=== PATIENT | female | born 1935 | race Caucasian/White ===

== ENCOUNTER 2016-09-26 22:51 | Inpatient (IN) | payer MEDICARE, OTHER ==
[~2016-09-26] VITALS: Ht 160 cm; Wt 87.6 kg
[2016-09-26] MEDS ORDERED: DuoNeb 0.5-3(2.5)mg/3ml neb HHN PRN (23:00)
[2016-09-26] MEDS ORDERED: Miralax 17gm pkt ORAL PRN (23:00)
[2016-09-26] MEDS ORDERED: Mylanta II UD 30ml ORAL PRN (23:00)
[2016-09-26] MEDS ORDERED: Zolpidem 5mg tab ORAL PRN (23:00)
[2016-09-26] MEDS ORDERED: Promethazine/Codeine 5ml UD ORAL PRN (23:00)
[2016-09-26] MEDS ORDERED: Morphine Sulfate 2mg/ml Inj IVP PRN (23:00)
[2016-09-26] MEDS ORDERED: LIPITOR20 MG ORAL (23:57)
[2016-09-26] MEDS ORDERED: LYRICA100 MG ORAL (23:57)
[2016-09-26] MEDS ORDERED: DILANTIN100 MG ORAL (23:57)
[2016-09-26] MEDS ORDERED: SENSIPAR30 MG ORAL (23:57)
[2016-09-26] MEDS ORDERED: COREG6.25 MG ORAL (23:57)
[2016-09-26] MEDS ORDERED: AGGRENOX1 CAP ORAL (23:57)
[2016-09-26] MEDS ORDERED: RENVELA800 MG ORAL (23:57)
[2016-09-26] MEDS ORDERED: VITAMIN D1000 UNI1 ORAL (23:57)
[2016-09-27] VITALS: BP 142/76
[2016-09-27 07:39] VITALS: BP 155/78
[2016-09-27 08:07] LABS: BASOPHILS % (AUTO) 1.1 % (0.0-2.0); EOSINOPHILS % (AUTO) 0.1 % (0.0-3.0); LYMPHOCYTES % (AUTO) 8.8 % (20.0-45.0); MEAN CORPUSCULAR HEMOGLOBIN 30.2 PG (27.0-31.0); MEAN CORPUSCULAR HGB CONC 31.4 G/DL (32.0-36.0); MEAN CORPUSCULAR VOLUME 96 FL (80-99); MONOCYTES % (AUTO) 7.8 % (1.0-10.0); NEUTROPHILS % (AUTO) 82.3 % (45.0-75.0); PLATELET COUNT 124 K/UL (150-450); RED BLOOD COUNT 3.76 M/UL (4.20-5.40); RED CELL DISTRIBUTION WIDTH 15.3 % (11.6-14.8); WHITE BLOOD COUNT 6.6 K/UL (4.8-10.8)
[2016-09-27 08:15] LABS: ALANINE AMINOTRANSFERASE 11 U/L (3-33); ALBUMIN/GLOBULIN RATIO 1.4 (1.0-2.7); ANION GAP 19 (5-15); ASPARTATE AMINO TRANSFERASE 22 U/L (5-40); CALCIUM 8.8 mg/dL (8.6-10.2); CARBON DIOXIDE 30 mEQ/L (20-30); CHLORIDE 91 mEQ/L (98-107); CREATININE 5.9 mg/dL (0.5-0.9); HEMOLYSIS 3; POTASSIUM 4.8 mEQ/L (3.4-4.9); SODIUM 140 mEQ/L (135-145); TOTAL PROTEIN 6.9 g/dL (6.6-8.7)
[2016-09-27 08:32] LABS: HEMOGLOBIN A1C 7.7 % (< 6.0)
[2016-09-27] MEDS: Heparin 5000 units/ml inj SUBQ SCH ×2 (09:00→21:00)
[2016-09-27 12:22] VITALS: BP 197/101
--- NOTE | 2016-09-27 12:28 | History and Physical ---
History of Present Illness General Date patient seen: Sep 27, 2016 Reason for Hospitalization: cough and fever Present Illness HPI 81 year old female with PMHx of ESRD on HD (M/W/F), DM, htn, living at home, walking with a walker, was taken by paramedics to [facility] with CC of fever and cough. She was diagnosed to have bronchitis and transferred to [place] for further management. Pt is awake, comfortable, hardly talking, no in acute distress. Pts help with PMHx. Allergies: Coded Allergies: No Known Allergies (Verified Allergy, Unknown, 10/28/09) Medication History Scheduled Atorvastatin Calcium* (Lipitor*), 20 MG ORAL BEDTIME, (Reported) Carvedilol (Coreg), 6.25 MG ORAL BID, (Reported) Cholecalciferol (Vitamin D3)* (Vitamin D*), 2,000 UNITS ORAL DAILY, (Reported) Cinacalcet* (Sensipar*), 30 MG ORAL DAILY, (Reported) Dipyridamole/Aspirin (Aggrenox 25 mg-200 mg Capsule), 1 CAP ORAL DAILY, ( Reported) Phenytoin Sodium Extended* (Dilantin*), 100 MG ORAL DAILY, (Reported) Pregabalin (Lyrica), 100 MG ORAL DAILY, (Reported) Sevelamer Carbonate (Renvela), 800 MG ORAL BID, (Reported) Patient History Healthcare decision maker Resuscitation status Full Code Advanced Directive on File Past Medical/Surgical History Past Medical/Surgical History: (1) Diabetes mellitus (2) ESRF (end stage renal failure) (3) HTN (hypertension) Review of Systems Respiratory: Reports: cough, shortness of breath, sputum Physical Exam General Appearance: WD/WN Lines, tubes and drains: peripheral HEENT: normocephalic, atraumatic Neck: non-tender, normal alignment Respiratory/Chest: chest wall non-tender, crackles/rales Breasts: no masses Cardiovascular/Chest: normal peripheral pulses, normal rate Abdomen: normal bowel sounds, non tender Extremities: normal range of motion Skin Exam: normal pigmentation Last 24 Hour Vital Signs Date Time Temp Pulse Resp B/P Pulse Ox O2 Delivery O2 Flow Rate FiO2 09/27/16 11:44 89 20 95 Nasal Cannula 2.0 28 09/27/16 11:42 89 20 95 Nasal Cannula 2.0 28 09/27/16 10:39 216/108 09/27/16 07:55 90 22 92 Nasal Cannula 2.0 28 09/27/16 07:45 88 21 94 Nasal Cannula 2.0 28 09/27/16 07:45 88 22 Nasal Cannula 2.0 28 09/27/16 07:39 95.6 72 18 155/78 96 Nasal Cannula 2.0 09/27/16 04:00 94 09/27/16 00:00 78 09/27/16 00:00 92.2 74 18 142/76 95 Nasal Cannula 2.0 Laboratory Tests Test 09/27/16 06:50 White Blood Count 6.6 K/UL (4.8-10.8) Red Blood Count 3.76 M/UL (4.20-5.40) L Hemoglobin 11.3 G/DL (12.0-16.0) L Hematocrit 36.1 % (37.0-47.0) L Mean Corpuscular Volume 96 FL (80-99) Mean Corpuscular Hemoglobin 30.2 PG (27.0-31.0) Mean Corpuscular Hemoglobin Concent 31.4 G/DL (32.0-36.0) L Red Cell Distribution Width 15.3 % (11.6-14.8) H Platelet Count 124 K/UL (150-450) L Mean Platelet Volume 8.0 FL (6.5-10.1) Neutrophils (%) (Auto) 82.3 % (45.0-75.0) H Lymphocytes (%) (Auto) 8.8 % (20.0-45.0) L Monocytes (%) (Auto) 7.8 % (1.0-10.0) Eosinophils (%) (Auto) 0.1 % (0.0-3.0) Basophils (%) (Auto) 1.1 % (0.0-2.0) Sodium Level 140 mEQ/L (135-145) Potassium Level 4.8 mEQ/L (3.4-4.9) Chloride Level 91 mEQ/L (98-107) L Carbon Dioxide Level 30 mEQ/L (20-30) Anion Gap 19 (5-15) H Blood Urea Nitrogen 41 mg/dL (7-23) H Creatinine 5.9 mg/dL (0.5-0.9) H Estimat Glomerular Filtration Rate mL/min (>60) Glucose Level 235 mg/dL (74-106) H Hemoglobin A1c 7.7 % (< 6.0) H Calcium Level 8.8 mg/dL (8.6-10.2) Total Bilirubin 0.3 mg/dL (0.0-1.2) Aspartate Amino Transf (AST/SGOT) 22 U/L (5-40) Alanine Aminotransferase (ALT/SGPT) 11 U/L (3-33) Alkaline Phosphatase 96 U/L (35-104) Total Protein 6.9 g/dL (6.6-8.7) Albumin 4.1 g/dL (3.5-5.2) Globulin 2.8 g/dL Albumin/Globulin Ratio 1.4 (1.0-2.7) Thyroid Stimulating Hormone (TSH) 1.910 uIU/mL (0.300-4.500) Height (Feet): 5 Height (Inches): 3.00 Weight (Pounds): 189 Medications Current Medications Medications (Trade) Dose Ordered Sig/Karan Route PRN Reason Start Time Stop Time Status Last Admin Dose Admin Acetaminophen (Tylenol) 650 mg Q4H PRN ORAL fever 09/26/16 23:00 10/26/16 22:59 Al Hydroxide/Mg Hydroxide (Mylanta II) 30 ml Q6H PRN ORAL dyspepsia 09/26/16 23:00 10/26/16 22:59 Albuterol/ Ipratropium (DuoNeb 0.5-3(2.5)mg/3ml) 3 ml Q6H PRN HHN dyspnea 09/26/16 23:00 10/01/16 22:59 Clonidine HCl (Catapres) 0.1 mg Q4H PRN ORAL For High Blood Pressure 09/26/16 23:00 10/26/16 22:59 09/27/16 10:39 Dextrose (Dextrose 50%) STAT PRN IV Hypoglycemia 09/26/16 23:00 10/26/16 22:59 Heparin Sodium (Porcine) (Heparin 5000 units/ml) 5,000 units EVERY 12 HOURS SUBQ 09/27/16 09:00 10/27/16 08:59 Morphine Sulfate (Morphine Sulfate) 1 mg Q4H PRN IVP For Pain 09/26/16 23:00 3/19/17 22:59 Ondansetron HCl (Zofran) 4 mg Q6H PRN IVP Nausea & Vomiting 09/26/16 23:00 10/26/16 22:59 Polyethylene Glycol (Miralax) 17 gm HSPRN PRN ORAL Constipation 09/26/16 23:00 10/26/16 22:59 Promethazine HCl/ Codeine (Phenergan with Codeine) 5 ml Q4H PRN ORAL For Cough 09/26/16 23:00 10/26/16 22:59 Zolpidem Tartrate (Ambien) 5 mg HSPRN PRN ORAL Insomnia 09/26/16 23:00 10/26/16 22:59 Assessment/Plan Problem List: (1) Aspiration pneumonia ICD Codes: J69.0 - Pneumonitis due to inhalation of food and vomit SNOMED: 130112601 Qualifiers: (2) Sepsis ICD Codes: A41.9 - Sepsis, unspecified organism SNOMED: 14542395 (3) Acute encephalopathy ICD Codes: G93.40 - Encephalopathy, unspecified SNOMED: 0329142 (4) Diabetes mellitus ICD Codes: E11.9 - Type 2 diabetes mellitus without complications SNOMED: 96350343 (5) HTN (hypertension) ICD Codes: I10 - Essential (primary) hypertension SNOMED: 15929558 (6) ESRF (end stage renal failure) ICD Codes: N18.6 - End stage renal disease SNOMED: 45398159 Assessment/Plan respiratory treatment IV antibiotics HD f/fu troponin, echo echo cardio/ renal evaluation check sputum sliding scale, diabetic diet monitor bp titrate bp meds. LINDA RODRIGUEZ Sep 27, 2016 12:28
[2016-09-27] MEDS ORDERED: Enalaprilat 2.5mg/2ml Inj IV PRN (12:30)
[2016-09-27] MEDS ORDERED: Labetalol 5mg/ml 20ml vial IV PRN (12:30)
--- NOTE | 2016-09-27 14:57 | Consultation ---
Consult Note Assessment/Plan Brief nephrology consult: dictated#[id number] ROBERT NORIEGA Sep 27, 2016 14:57
[2016-09-27 16:00] VITALS: BP 167/105
[2016-09-27 16:24] VITALS: BP 182/95
[2016-09-27] MEDS ORDERED: Levemir Flexpen SUBQ ONE (17:00)
[2016-09-27] MEDS: Levemir Flexpen SUBQ SCH (18:30)
[2016-09-27] MEDS: Piperacillin/Tazobactam 2.25 GM in D5W 55 ML IVPB SCH (19:22)
[2016-09-27] MEDS ORDERED: DuoNeb 0.5-3(2.5)mg/3ml neb HHN SCH (21:00)
[2016-09-27] MEDS: Lyrica 50mg cap ORAL SCH (21:17)
[2016-09-27] MEDS: Carvedilol 6.25mg Tab ORAL SCH (21:18)
--- NOTE | 2016-09-27 21:28 | Consultation ---
DATE OF CONSULTATION: 09/27/2016 NEPHROLOGY CONSULTATION CONSULTING PHYSICIAN: Yan Odom M.D. REFERRING PHYSICIAN: Steph Tabares M.D. REASON FOR CONSULT: The patient with end-stage renal disease has presented with increasing shortness of breath. HISTORY OF PRESENT ILLNESS: This is a very pleasant 81-year-old Monegasque-speaking lady patient of [employer], who has end-stage renal disease secondary to diabetic nephropathy. She has been on hemodialysis three days a week on Tuesday, Tuesday, and Fridays. Apparently, after her dialysis on last Tuesday, she did not feel good and has gotten worse over the weekend in the sense that she has been having some increasing shortness of breath and eventually on 09/27/2016, she was the really, really out of breath and 911 was called. She initially was brought to the [facility] emergency room and subsequently has been transferred under the care of Dr. Tabares in [facility]. I have been asked to see her and arrange for her hemodialysis needs. It seems that her blood pressure has been in the range of 200/100. She also has been having some wheezing and really being short of breath and we arranged for hemodialysis on her. She has been on hemodialysis and we are planning to take off about 3 liters out of her and she is tolerating taking this fluid off. She denies also any chest pain, has had some increasing orthopnea, not much leg edema. PAST MEDICAL HISTORY: Significant for type 2 diabetes mellitus, insulin requiring, hypertension, end-stage renal disease, hyperlipidemia, and previous CVA with left-sided weakness, some degree of cognitive impairment, and major depression. PAST SURGICAL HISTORY: Status post left hip fracture, status post ORIF, and status post AV fistula creation for hemodialysis access. ALLERGIES: JONA inhibitors. MEDICATIONS: 1. Amlodipine 10 mg p.o. daily. 2. Lipitor 40 mg p.o. daily. 3. Dulcolax 10 mg one suppository p.r.n. 4. Coreg 25 mg p.o. b.i.d. 5. Celexa 10 mg p.o. daily. 6. Bentyl 10 mg p.o. q.8 h. p.r.n. 7. Aggrenox 1 tablet p.o. b.i.d. 8. Nexium 40 mg p.o. b.i.d. 9. Liptruzet 10/20 p.o. daily. 10. Hydralazine 50 mg p.o. t.i.d. 11. Lantus 25 units subcutaneous at bedtime. 12. Reglan 10 mg p.o. q 6 h. p.r.n. 13. Dilantin 100 mg p.o. b.i.d. 14. MiraLAX 17 g p.o. daily. 15. Renvela 800 mg p.o. t.i.d. with each meal. SOCIAL HISTORY: She does not smoke. Does not drink alcohol. She lives with her . She is retired. She has immigrated from [place]. REVIEW OF SYSTEMS: She is having some increasing shortness of breath with exertion and also some orthopnea. She has had some wheezing. No chest pain. No nausea, vomiting, or diarrhea. Bowels are moving okay. She also has been having some paresthesia in the lower extremities. The remainder of the review of the systems has been essentially negative. PHYSICAL EXAMINATION: GENERAL: She does not seem to be in much acute distress. She has been on hemodialysis now. She is feeling somewhat better. VITAL SIGNS: Her blood pressure initially was 197/101, pulse of 85, respirations 22, and temperature 98.6. HEENT: Head is atraumatic. Eyes, pupils reactive to light. No evidence of papilledema. Ear, canals are clear. The tympanic membranes are intact. Nose, nares are patent without any nasal discharge. Throat without inflammation or exudate. NECK: Supple. Jugular venous distention is somewhat increased. No cervical adenopathy. No thyromegaly. HEART: Regular rhythm. No gallop. LUNGS: Few crackles and wheezing bilaterally. ABDOMEN: Supple. Bowel sounds positive. No hepatosplenomegaly. EXTREMITIES: Lower extremity shows trace pedal edema. NEUROLOGIC: Cranial nerves seems to be grossly intact. There is a left-sided weakness. Deep tendon reflexes are symmetrically decreased in both lower extremity. LABORATORY DATA: Laboratory data is showing WBC of 6.6, hemoglobin is 11.3, hematocrit 36.1, and platelets of 124,000. Sodium 140, potassium 4.8, chloride 91, carbon dioxide 30, BUN is 41, creatinine 5.9, and glucose 235. Hemoglobin A1c 7.7. TSH 1.9. LFTs within normal range. IMPRESSION: 1. End-stage renal disease. 2. Evidence of fluid overload/congestive heart failure. 3. Rule out any cardiac event. 4. Type 2 diabetes mellitus. PLAN: Hemodialysis has been arranged on her. She has been seen on it and she is tolerating fluid removal at this point. A cardiac workup is probably warranted on her. At the end, I would like to thank you, Dr. Tabares, for letting me be involved in the care of this very nice lady and please do not hesitate to contact me if you have any questions. Yan Odom M.D. DR: VALENTINA JOB#: [id number] CC:
[2016-09-27] MEDS: DuoNeb 0.5-3(2.5)mg/3ml neb HHN SCH (23:03)
[2016-09-28] VITALS (7 sets, daily range): BP systolic 124–171; BP diastolic 64–77
[2016-09-28] MEDS: Piperacillin/Tazobactam 2.25 GM in D5W 55 ML IVPB SCH ×3 (01:31→18:42)
[2016-09-28] MEDS: DuoNeb 0.5-3(2.5)mg/3ml neb HHN SCH ×6 (03:41→23:00)
[2016-09-28] MEDS ORDERED: Levemir Flexpen SUBQ SCH (09:00)
[2016-09-28] MEDS: Heparin 5000 units/ml inj SUBQ SCH ×2 (09:00→20:40)
[2016-09-28] MEDS: Aggrenox Cap ORAL SCH (09:07)
[2016-09-28] MEDS: Sensipar 30mg Tab ORAL SCH (09:07)
[2016-09-28] MEDS: Vitamin D 1000 IU Tab ORAL SCH (09:07)
[2016-09-28] MEDS: Atorvastatin 20mg tab ORAL SCH (09:07)
[2016-09-28] MEDS: Carvedilol 6.25mg Tab ORAL SCH ×2 (09:08→20:39)
[2016-09-28] MEDS: Phenytoin 100mg cap ORAL SCH (09:08)
[2016-09-28] MEDS ORDERED: Heparin Sod 1000 units/ml 10ml IV ONE (12:30)
--- NOTE | 2016-09-28 14:17 | Nephrology Progress Note ---
Assessment/Plan Assessment 1) ESRD 2) Fluid overload/CHF 3) DM Plan: Will HD tomorrow again Probably need cardiac W/U Will get TTE Subjective Subjective She had HD yesterday with 3 l fluid removal, still some sob, no cough or purulent sputum Objective Objective Last 24 Hour Vital Signs Date Time Temp Pulse Resp B/P Pulse Ox O2 Delivery O2 Flow Rate FiO2 09/28/16 12:00 97.0 80 18 130/72 98 Nasal Cannula 2.0 09/28/16 12:00 73 09/28/16 11:24 89 16 100 Nasal Cannula 2.0 28 09/28/16 11:19 89 16 98 Nasal Cannula 2.0 28 09/28/16 11:19 28 09/28/16 10:54 81 09/28/16 09:08 83 154/69 09/28/16 08:00 96.6 83 17 154/69 95 Room Air 09/28/16 07:47 84 16 100 Nasal Cannula 2.0 28 09/28/16 07:38 98 16 98 Nasal Cannula 2.0 28 09/28/16 07:38 28 09/28/16 07:38 102 16 Nasal Cannula 2.0 28 09/28/16 07:38 100 Nasal Cannula 2.0 28 09/28/16 07:38 Nasal Cannula 2.0 28 09/28/16 04:30 97.9 78 20 145/72 98 09/28/16 04:00 85 09/28/16 03:10 82 16 100 Nasal Cannula 2.0 28 09/28/16 03:00 28 09/28/16 03:00 82 16 94 Nasal Cannula 2.0 28 09/28/16 00:00 86 09/28/16 00:00 97.0 75 20 171/77 99 Nasal Cannula 2.0 09/27/16 23:12 87 16 100 Nasal Cannula 2.0 28 09/27/16 23:05 28 09/27/16 23:05 79 16 92 Nasal Cannula 2.0 28 09/27/16 21:18 99 149/87 09/27/16 20:00 103 09/27/16 19:11 100 Nasal Cannula 2.0 28 09/27/16 19:11 Nasal Cannula 2.0 28 09/27/16 18:40 86 16 100 Nasal Cannula 2.0 28 09/27/16 18:31 111 16 Nasal Cannula 2.0 28 09/27/16 18:30 111 16 99 Nasal Cannula 2.0 28 09/27/16 18:30 28 09/27/16 17:01 182/95 09/27/16 16:26 Room Air 2.0 09/27/16 16:24 97.0 86 21 182/95 96 2.0 09/27/16 16:00 94 09/27/16 16:00 99.1 95 20 167/105 98 Nasal Cannula 2.0 Intake and Output 09/27/16 09/28/16 19:00 07:00 Intake Total 1040 ml 415 ml Output Total 3000 ml 50 ml Balance -1960 ml 365 ml Intake Oral 1040 ml 360 ml IV Total 55 ml Output Urine Total 0 ml Emesis 50 ml Hemodialysis UF 3000 ml # Voids 2 1 Height (Feet): 5 Height (Inches): 3.00 Weight (Pounds): 193 General Appearance: WD/WN, alert EENT: PERRL/EOMI Neck: non-tender, normal alignment, supple Cardiovascular: normal rate, regular rhythm, JVD - high Respiratory/Chest: expiratory wheezing Abdomen: non tender, soft 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
[2016-09-28] MEDS: Lyrica 50mg cap ORAL SCH (20:40)
--- NOTE | 2016-09-28 22:25 | Pulmonology Progress Note ---
Assessment/Plan Problems: (1) Aspiration pneumonia (2) Sepsis (3) Acute encephalopathy (4) Diabetes mellitus (5) HTN (hypertension) (6) ESRF (end stage renal failure) Assessment/Plan improving hd by nephrology adjust cardiac meds tolerating diet dvt prophylasis d/w dr valdez Subjective ROS Limited/Unobtainable: No Interval Events: doing better, less short of breat Allergies: Coded Allergies: No Known Allergies (Verified Allergy, Unknown, 10/28/09) Objective Last 24 Hour Vital Signs Date Time Temp Pulse Resp B/P Pulse Ox O2 Delivery O2 Flow Rate FiO2 09/28/16 20:39 79 126/64 09/28/16 20:34 90 18 99 Nasal Cannula 2.0 28 09/28/16 20:34 92 18 99 Nasal Cannula 2.0 28 09/28/16 20:34 28 09/28/16 20:33 99 Nasal Cannula 2.0 28 09/28/16 20:33 Nasal Cannula 2.0 28 09/28/16 20:33 91 16 Nasal Cannula 2.0 28 09/28/16 20:00 98.1 79 20 126/64 94 Room Air 09/28/16 16:10 75 20 99 Nasal Cannula 2.0 28 09/28/16 16:00 97.5 97 21 124/73 91 Room Air 09/28/16 15:57 75 20 99 Nasal Cannula 2.0 28 09/28/16 15:57 28 09/28/16 12:00 97.0 80 18 130/72 98 Nasal Cannula 2.0 09/28/16 12:00 73 09/28/16 11:24 89 16 100 Nasal Cannula 2.0 09/28/16 11:19 89 16 98 Nasal Cannula 2.0 28 09/28/16 11:19 28 09/28/16 10:54 81 09/28/16 09:08 83 154/69 09/28/16 08:00 96.6 83 17 154/69 95 Room Air 09/28/16 07:47 84 16 100 Nasal Cannula 2.0 28 09/28/16 07:38 98 16 98 Nasal Cannula 2.0 28 09/28/16 07:38 28 09/28/16 07:38 102 16 Nasal Cannula 2.0 09/28/16 07:38 100 Nasal Cannula 2.0 28 09/28/16 07:38 Nasal Cannula 2.0 28 09/28/16 04:30 97.9 78 20 145/72 98 09/28/16 04:00 85 09/28/16 03:10 82 16 100 Nasal Cannula 2.0 28 09/28/16 03:00 28 09/28/16 03:00 82 16 94 Nasal Cannula 2.0 28 09/28/16 00:00 86 09/28/16 00:00 97.0 75 20 171/77 99 Nasal Cannula 2.0 09/27/16 23:12 87 16 100 Nasal Cannula 2.0 28 09/27/16 23:05 28 09/27/16 23:05 79 16 92 Nasal Cannula 2.0 28 Intake and Output 09/27/16 09/28/16 19:00 07:00 Intake Total 1040 ml 415 ml Output Total 3000 ml 50 ml Balance -1960 ml 365 ml Intake Oral 1040 ml 360 ml IV Total 55 ml Output Urine Total 0 ml Emesis 50 ml Hemodialysis UF 3000 ml # Voids 2 1 Objective General Appearance: WD/WN HEENT: normocephalic, atraumatic Respiratory/Chest: chest wall non-tender, crackles/rales, wheezing Cardiovascular: normal peripheral pulses, normal rate Abdomen: normal bowel sounds, soft, non tender Genitourinary: normal external genitalia Extremities: no cyanosis, no clubbing, ulers and gangrene Skin: no rash 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 Current Medications Medications (Trade) Dose Ordered Sig/Karan Route PRN Reason Start Time Stop Time Status Last Admin Dose Admin Acetaminophen (Tylenol) 650 mg Q4H PRN ORAL fever 09/26/16 23:00 10/26/16 22:59 Al Hydroxide/Mg Hydroxide (Mylanta II) 30 ml Q6H PRN ORAL dyspepsia 09/26/16 23:00 10/26/16 22:59 Albuterol/ Ipratropium (DuoNeb 0.5-3(2.5)mg/3ml) 3 ml Q4HRT HHN 09/27/16 23:00 10/02/16 22:59 09/28/16 20:33 Atorvastatin Calcium (Lipitor) 20 mg DAILY ORAL 09/28/16 09:00 10/28/16 08:59 09/28/16 09:07 Carvedilol (Coreg) 6.25 mg EVERY 12 HOURS ORAL 09/27/16 21:00 10/27/16 20:59 09/28/16 20:39 Cinacalcet (Sensipar) 30 mg DAILY ORAL 09/28/16 09:00 10/28/16 08:59 09/28/16 09:07 Dextrose (Dextrose 50%) STAT PRN IV Hypoglycemia 09/26/16 23:00 10/26/16 22:59 Dipyridamole/ Aspirin (Aggrenox) 1 cap DAILY ORAL 09/28/16 09:00 10/28/16 08:59 09/28/16 09:07 Enalaprilat (Vasotec) 2.5 mg Q4H PRN IV sbp more than 200 09/27/16 12:30 10/27/16 12:29 Heparin Sodium (Porcine) (Heparin 5000 units/ml) 5,000 units EVERY 12 HOURS SUBQ 09/27/16 09:00 10/27/16 08:59 Heparin Sodium (Porcine) (Heparin Sod 1000 units/ml 10ml) 2,000 unit ONCE ONCE IV 09/29/16 14:30 09/29/16 14:31 Hydralazine HCl (Apresoline) 20 mg Q4H PRN IV sbp more than 160 09/27/16 12:30 10/27/16 12:29 09/27/16 17:01 Insulin Detemir (Levemir) 20 units MoWeFr@0900 SUBQ 09/27/16 18:30 10/27/16 18:29 Insulin Detemir (Levemir) 30 units SuTuThSa@0900 SUBQ 09/28/16 09:00 10/28/16 08:59 09/28/16 09:13 Labetalol HCl (Normodyne) 20 mg Q1H PRN IV sbo more than 180 09/27/16 12:30 10/27/16 12:29 Morphine Sulfate (Morphine Sulfate) 1 mg Q4H PRN IVP For Pain 09/26/16 23:00 10/03/16 22:59 Ondansetron HCl (Zofran) 4 mg Q4HR PRN IVP Nausea & Vomiting 09/27/16 19:15 10/27/16 19:14 09/27/16 19:35 Phenytoin (Dilantin) 100 mg DAILY ORAL 09/28/16 09:00 10/28/16 08:59 09/28/16 09:08 Piperacillin Sod/ Tazobactam Sod/ Dextrose (Zosyn/D5W) 55 ml @ 110 mls/hr Q8HR@0200,1000,1800 IVPB 09/27/16 18:00 10/04/16 17:59 09/28/16 18:42 Polyethylene Glycol (Miralax) 17 gm HSPRN PRN ORAL Constipation 09/26/16 23:00 10/26/16 22:59 Pregabalin (Lyrica) 100 mg BEDTIME ORAL 09/27/16 21:00 10/27/16 20:59 09/28/16 20:40 Promethazine HCl/ Codeine 5 ml 5 ml Q4H PRN ORAL For Cough 09/26/16 23:00 10/26/16 22:59 Sevelamer Carbonate (Renvela) 800 mg BID ORAL 09/28/16 09:00 10/28/16 08:59 09/28/16 18:41 Vitamin D (Vitamin D) 2,000 intlu DAILY ORAL 09/28/16 09:00 10/28/16 08:59 09/28/16 09:07 Zolpidem Tartrate (Ambien) 5 mg HSPRN PRN ORAL Insomnia 09/26/16 23:00 10/26/16 22:59 LINDA RODRIGUEZ Sep 28, 2016 22:25
[2016-09-29] VITALS: BP 126/69
[2016-09-29] MEDS: Piperacillin/Tazobactam 2.25 GM in D5W 55 ML IVPB SCH ×2 (02:00→12:29)
[2016-09-29] MEDS: DuoNeb 0.5-3(2.5)mg/3ml neb HHN SCH ×4 (02:55→15:20)
[2016-09-29 04:00] VITALS: BP 135/67
[2016-09-29] MEDS: NovoLOG Insulin Flexpen SUBQ SCH ×3 (06:23→17:01)
[2016-09-29 08:02] VITALS: BP 143/86
[2016-09-29] MEDS: Heparin 5000 units/ml inj SUBQ SCH (08:16)
[2016-09-29 08:17] LABS: ANION GAP 18 (5-15); CALCIUM 8.1 mg/dL (8.6-10.2); CARBON DIOXIDE 29 mEQ/L (20-30); CHLORIDE 92 mEQ/L (98-107); CREATININE 6.7 mg/dL (0.5-0.9); HEMOLYSIS 8; SODIUM 139 mEQ/L (135-145)
[2016-09-29] MEDS: Carvedilol 6.25mg Tab ORAL SCH (08:17)
[2016-09-29] MEDS: Vitamin D 1000 IU Tab ORAL SCH (08:17)
[2016-09-29] MEDS: Phenytoin 100mg cap ORAL SCH (08:18)
[2016-09-29] MEDS: Sensipar 30mg Tab ORAL SCH (08:18)
[2016-09-29] MEDS: Aggrenox Cap ORAL SCH (08:18)
[2016-09-29] MEDS: Atorvastatin 20mg tab ORAL SCH (08:18)
[2016-09-29] MEDS: Levemir Flexpen SUBQ SCH (08:27)
[2016-09-29 11:34] VITALS: BP 105/61
[2016-09-29] MEDS: Nateglinide 60mg tab ORAL SCH ×2 (12:29→16:59)
[2016-09-29] MEDS ORDERED: Heparin Sod 1000 units/ml 10ml IV ONE (14:30)
--- NOTE | 2016-09-29 14:42 | Nephrology Progress Note ---
Assessment/Plan Assessment 1) ESRD 2) Fluid overload/CHF 3) DM Plan: HD done today Awaiting cardiology input Subjective Subjective She had HD today again with 3 l fluid removal, no c/p or sob Objective Objective Last 24 Hour Vital Signs Date Time Temp Pulse Resp B/P Pulse Ox O2 Delivery O2 Flow Rate FiO2 09/29/16 13:11 Room Air 2.0 28 09/29/16 12:00 78 09/29/16 11:36 78 16 99 Nasal Cannula 2.0 28 09/29/16 11:34 97.9 61 18 105/61 96 Room Air 09/29/16 11:25 80 18 98 Nasal Cannula 2.0 28 09/29/16 11:25 28 09/29/16 09:20 Room Air 2.0 28 09/29/16 08:17 68 143/86 09/29/16 08:02 96.6 68 18 143/86 95 Nasal Cannula 2.0 09/29/16 08:00 81 09/29/16 07:28 76 16 99 Nasal Cannula 2.0 28 09/29/16 07:22 28 09/29/16 07:22 99 Nasal Cannula 2.0 28 09/29/16 07:22 82 18 98 Nasal Cannula 2.0 28 09/29/16 07:22 Nasal Cannula 2.0 28 09/29/16 07:22 76 16 Nasal Cannula 2.0 28 09/29/16 04:00 97.9 66 20 135/67 96 Nasal Cannula 2.0 09/29/16 04:00 75 09/29/16 02:55 Nasal Cannula 2.0 28 09/29/16 02:55 81 18 98 Nasal Cannula 2.0 28 09/29/16 00:00 97.7 80 20 126/69 94 Nasal Cannula 2.0 09/29/16 00:00 77 09/28/16 23:04 Nasal Cannula 2.0 28 09/28/16 23:04 84 18 96 Nasal Cannula 2.0 28 09/28/16 20:39 79 126/64 09/28/16 20:34 90 18 99 Nasal Cannula 2.0 28 09/28/16 20:34 92 18 99 Nasal Cannula 2.0 28 09/28/16 20:34 28 09/28/16 20:33 99 Nasal Cannula 2.0 28 09/28/16 20:33 Nasal Cannula 2.0 28 09/28/16 20:33 91 16 Nasal Cannula 2.0 28 09/28/16 20:00 98.1 79 20 126/64 94 Room Air 09/28/16 20:00 86 09/28/16 16:10 75 20 99 Nasal Cannula 2.0 28 09/28/16 16:00 86 09/28/16 16:00 97.5 97 21 124/73 91 Room Air 09/28/16 15:57 75 20 99 Nasal Cannula 2.0 28 09/28/16 15:57 28 Intake and Output 09/28/16 09/29/16 19:00 07:00 Intake Total 790 ml 365 ml Output Total 0 ml Balance 790 ml 365 ml Intake Oral 680 ml 310 ml IV Total 110 ml 55 ml Output Urine Total 0 ml # Voids 2 Laboratory Tests 09/29/16 05:35: Sodium Level 139, Potassium Level 5.0H, Chloride Level 92L, Carbon Dioxide Level 29, Anion Gap 18H, Blood Urea Nitrogen 55H, Creatinine 6.7H, Estimat Glomerular Filtration Rate , Glucose Level 154H, Calcium Level 8.1L Height (Feet): 5 Height (Inches): 3.00 Weight (Pounds): 193 General Appearance: WD/WN, no apparent distress EENT: PERRL/EOMI Neck: non-tender, normal alignment Cardiovascular: normal rate, regular rhythm, JVD - high Respiratory/Chest: chest wall non-tender, lungs clear 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
--- NOTE | 2016-09-29 15:26 | Pulmonology Progress Note ---
Assessment/Plan Problems: (1) Aspiration pneumonia (2) Sepsis (3) Acute encephalopathy (4) Diabetes mellitus (5) HTN (hypertension) (6) ESRF (end stage renal failure) Assessment/Plan HD today again improving hd by nephrology adjust cardiac meds tolerating diet dvt prophylasis d/w dr josé miguel AGUIRRE to dc home Subjective ROS Limited/Unobtainable: No Interval Events: less short of breath Allergies: Coded Allergies: No Known Allergies (Verified Allergy, Unknown, 10/28/09) Objective Last 24 Hour Vital Signs Date Time Temp Pulse Resp B/P Pulse Ox O2 Delivery O2 Flow Rate FiO2 09/29/16 13:11 Room Air 2.0 28 09/29/16 12:00 78 09/29/16 11:36 78 16 99 Nasal Cannula 2.0 28 09/29/16 11:34 97.9 61 18 105/61 96 Room Air 09/29/16 11:25 80 18 98 Nasal Cannula 2.0 28 09/29/16 11:25 28 09/29/16 09:20 Room Air 2.0 28 09/29/16 08:17 68 143/86 09/29/16 08:02 96.6 68 18 143/86 95 Nasal Cannula 2.0 09/29/16 08:00 81 09/29/16 07:28 76 16 99 Nasal Cannula 2.0 28 09/29/16 07:22 28 09/29/16 07:22 99 Nasal Cannula 2.0 28 09/29/16 07:22 82 18 98 Nasal Cannula 2.0 28 09/29/16 07:22 Nasal Cannula 2.0 28 09/29/16 07:22 76 16 Nasal Cannula 2.0 28 09/29/16 04:00 97.9 66 20 135/67 96 Nasal Cannula 2.0 09/29/16 04:00 75 09/29/16 02:55 Nasal Cannula 2.0 28 09/29/16 02:55 81 18 98 Nasal Cannula 2.0 28 09/29/16 00:00 97.7 80 20 126/69 94 Nasal Cannula 2.0 09/29/16 00:00 77 09/28/16 23:04 Nasal Cannula 2.0 28 09/28/16 23:04 84 18 96 Nasal Cannula 2.0 28 09/28/16 20:39 79 126/64 09/28/16 20:34 90 18 99 Nasal Cannula 2.0 28 09/28/16 20:34 92 18 99 Nasal Cannula 2.0 28 09/28/16 20:34 28 09/28/16 20:33 99 Nasal Cannula 2.0 28 09/28/16 20:33 Nasal Cannula 2.0 28 09/28/16 20:33 91 16 Nasal Cannula 2.0 28 09/28/16 20:00 98.1 79 20 126/64 94 Room Air 09/28/16 20:00 86 09/28/16 16:10 75 20 99 Nasal Cannula 2.0 28 09/28/16 16:00 86 09/28/16 16:00 97.5 97 21 124/73 91 Room Air 09/28/16 15:57 75 20 99 Nasal Cannula 2.0 28 09/28/16 15:57 28 Intake and Output 09/28/16 09/29/16 19:00 07:00 Intake Total 790 ml 365 ml Output Total 0 ml Balance 790 ml 365 ml Intake Oral 680 ml 310 ml IV Total 110 ml 55 ml Output Urine Total 0 ml # Voids 2 Objective General Appearance: WD/WN HEENT: normocephalic, atraumatic Respiratory/Chest: chest wall non-tender, crackles/rales, wheezing Cardiovascular: normal peripheral pulses, normal rate Abdomen: normal bowel sounds, soft, non tender Genitourinary: normal external genitalia Extremities: no cyanosis, no clubbing, Skin: no rash 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 Resulted 09/27/16 09:30 Nasal Nares MRSA Culture - Final NO METHICILLIN RESISTANT STAPH AUREUS... Complete 09/27/16 09:30 Rectum VRE Culture - Final NO VANCOMYCIN RESISTANT ENTEROCOCCUS ... Complete Laboratory Tests 09/29/16 05:35: Sodium Level 139, Potassium Level 5.0H, Chloride Level 92L, Carbon Dioxide Level 29, Anion Gap 18H, Blood Urea Nitrogen 55H, Creatinine 6.7H, Estimat Glomerular Filtration Rate , Glucose Level 154H, Calcium Level 8.1L Current Medications Medications (Trade) Dose Ordered Sig/Karan Route PRN Reason Start Time Stop Time Status Last Admin Dose Admin Acetaminophen (Tylenol) 650 mg Q4H PRN ORAL fever 09/26/16 23:00 10/26/16 22:59 Al Hydroxide/Mg Hydroxide (Mylanta II) 30 ml Q6H PRN ORAL dyspepsia 09/26/16 23:00 10/26/16 22:59 Albuterol/ Ipratropium (DuoNeb 0.5-3(2.5)mg/3ml) 3 ml Q4HRT HHN 09/27/16 23:00 10/02/16 22:59 09/29/16 11:25 Atorvastatin Calcium (Lipitor) 20 mg DAILY ORAL 09/28/16 09:00 10/28/16 08:59 09/29/16 08:18 Carvedilol (Coreg) 6.25 mg EVERY 12 HOURS ORAL 09/27/16 21:00 10/27/16 20:59 09/29/16 08:17 Cinacalcet (Sensipar) 30 mg DAILY ORAL 09/28/16 09:00 10/28/16 08:59 09/29/16 08:18 Dextrose (Dextrose 50%) STAT PRN IV Hypoglycemia 09/26/16 23:00 10/26/16 22:59 Dextrose (Dextrose 50%) STAT PRN IV Hypoglycemia 09/28/16 23:45 10/28/16 23:44 Dipyridamole/ Aspirin (Aggrenox) 1 cap DAILY ORAL 09/28/16 09:00 10/28/16 08:59 09/29/16 08:18 Enalaprilat (Vasotec) 2.5 mg Q4H PRN IV sbp more than 200 09/27/16 12:30 10/27/16 12:29 Heparin Sodium (Porcine) (Heparin 5000 units/ml) 5,000 units EVERY 12 HOURS SUBQ 09/27/16 09:00 10/27/16 08:59 Hydralazine HCl (Apresoline) 20 mg Q4H PRN IV sbp more than 160 09/27/16 12:30 10/27/16 12:29 09/27/16 17:01 Insulin Aspart (NovoLOG) BEFORE MEALS AND HS SUBQ 09/29/16 06:30 10/29/16 06:29 Insulin Detemir (Levemir) 20 units MoWeFr@0900 SUBQ 09/27/16 18:30 10/27/16 18:29 09/29/16 08:27 Insulin Detemir (Levemir) 30 units SuTuThSa@0900 SUBQ 09/28/16 09:00 10/28/16 08:59 09/28/16 09:13 Labetalol HCl (Normodyne) 20 mg Q1H PRN IV sbo more than 180 09/27/16 12:30 10/27/16 12:29 Morphine Sulfate (Morphine Sulfate) 1 mg Q4H PRN IVP For Pain 09/26/16 23:00 10/03/16 22:59 Nateglinide (Starlix) 60 mg TIAC ORAL 09/29/16 11:30 10/29/16 11:29 09/29/16 12:29 Ondansetron HCl (Zofran) 4 mg Q4HR PRN IVP Nausea & Vomiting 09/27/16 19:15 10/27/16 19:14 09/27/16 19:35 Phenytoin (Dilantin) 100 mg DAILY ORAL 09/28/16 09:00 10/28/16 08:59 09/29/16 08:18 Piperacillin Sod/ Tazobactam Sod/ Dextrose (Zosyn/D5W) 55 ml @ 110 mls/hr Q8HR@0200,1000,1800 IVPB 09/27/16 18:00 10/04/16 17:59 09/29/16 12:29 Polyethylene Glycol (Miralax) 17 gm HSPRN PRN ORAL Constipation 09/26/16 23:00 10/26/16 22:59 Pregabalin (Lyrica) 100 mg BEDTIME ORAL 09/27/16 21:00 10/27/16 20:59 09/28/16 20:40 Promethazine HCl/ Codeine 5 ml 5 ml Q4H PRN ORAL For Cough 09/26/16 23:00 10/26/16 22:59 Sevelamer Carbonate (Renvela) 800 mg BID ORAL 09/28/16 09:00 10/28/16 08:59 09/29/16 08:17 Vitamin D (Vitamin D) 2,000 intlu DAILY ORAL 09/28/16 09:00 10/28/16 08:59 09/29/16 08:17 Zolpidem Tartrate (Ambien) 5 mg HSPRN PRN ORAL Insomnia 09/26/16 23:00 10/26/16 22:59 LINDA RODRIGUEZ Sep 29, 2016 15:26
--- NOTE | 2016-09-29 15:28 | Consultation ---
DATE OF CONSULTATION: 09/29/2016 ENDOCRINOLOGY CONSULTATION CONSULTING PHYSICIAN: Jackson Moscoso M.D. REFERRING PHYSICIAN: Irene Tabares M.D. REASON FOR CONSULTATION: Diabetes management. HISTORY OF PRESENT ILLNESS: The patient is a 81-year-old female with history of end-stage renal disease, history of diabetic nephropathy, on dialysis three days a week. The patient was brought to the hospital after dialysis as he was not feeling good and was getting increased shortness of breath. The patient was taken to [facility] and transferred to [facility] under the care of Dr. Tabares. I was called to manage diabetes. PAST MEDICAL HISTORY: 1. Type 2 diabetes on insulin. 2. Hypertension. 3. End-stage renal disease. 4. Hyperlipidemia. 5. CVA. 6. Cognitive impairment. 7. Depression. PAST SURGICAL HISTORY: 1. Hip fracture, status post ORIF. 2. AV fistula creation for dialysis. MEDICATIONS: Medications reviewed and reconciled. ALLERGIES: JONA inhibitors. SOCIAL HISTORY: No smoking. No alcohol. No drug use. She lives with her . She is retired. REVIEW OF SYSTEMS: Difficult to obtain due to language barrier. PHYSICAL EXAMINATION: GENERAL: She is not in apparent distress. VITAL SIGNS: Blood pressure is 135/67, pulse of 66, temperature of 97.5 degrees, and respiratory rate of 20. HEENT: Pupils are equal and reactive to light. Sclerae are anicteric NECK: No JVD. No thyromegaly. LUNGS: Clear. HEART: Regular rate and rhythm. ABDOMEN: Positive bowel sounds. Soft. EXTREMITIES: Without edema. DIAGNOSES: 1. Diabetes out of control. 2. End-stage renal disease. 3. Hypertension. 4. Bronchitis. PLAN: According to the patient, he uses 30 units of Levemir on non-dialysis day and 20 units of Levemir on dialysis day. I will add Starlix 60 mg before each meal to be given in order to improve postprandial hyperglycemia. Insulin coverage with NovoLog has been ordered and will follow the results and further adjust diabetic medication. Thank you, Dr. Tabares, for the courtesy of this consultation. Jackson Moscoso M.D. DR: Ameena JOB#: [id number] CC: SHANICE
[2016-09-29 16:00] VITALS: BP 134/76
[2016-09-29] MEDS ORDERED: NS 275ml ONE (17:29)
[2016-09-29] MEDS ORDERED: Tubing IV Secondary IV ONE (17:29)
--- NOTE | 2016-09-30 15:12 | Cardiology Report ---
APPROVED REPORT EXAM: Two-dimensional and M-mode echocardiogram with Doppler and color Doppler. INDICATION Congestive Heart Failure M-Mode DIMENSIONS IVSd1.5 (0.7-1.1cm)Left Atrium (MM)4.9 (1.6-4.0cm) LVDd3.6 (3.5-5.6cm)Aortic Root2.6 (2.0-3.7cm) PWd1.3 (0.7-1.1cm)Aortic Cusp Exc.1.8 (1.5-2.0cm) LVDs1.8 (2.5-4.0cm) PWs2.6 cm Technically difficult study due to poor acoustic windows. Study quality precludes accurate assessment of regional wall motion. Normal left ventricular chamber size, systolic function and wall motion to extent visualized. Left ventricular ejection fraction estimated to be 55-60 %. Mild left ventricular hypertrophy. No evidence of pericardial fat or effusion. Mild left atrial enlargement. Right cardiac chamber sizes are within normal limits. Mild focal aortic valve sclerosis with adequate cusp excursion. Mildly thickened mitral valve leaflets with normal excursion. Mild mitral annulus and aortic root calcification. Normal pulmonic valve structure. Normal tricuspid valve structure. IVC dilated at 1.8 cm with physiologic collapse. THERE IS PACEMAKER LEADS SEEN IN THE RIGHT SIDED CHAMBERS. PRESENCE OF AN ATRIAL MASS THAT IS NOT A PACEMAKER WIRE CANNOT BE EXCLUDED. A color flow and spectral Doppler study was performed and revealed: No aortic regurgitation. Trace mitral regurgitation. Mitral diastolic velocities suggest reduced left ventricular relaxation (Grade I). Mild tricuspid regurgitation. Tricuspid systolic velocities suggests peak right ventricular systolic pressure of 56 mmHg, consistent with moderate pulmonary hypertension. No pulmonic regurgitation present.
--- NOTE | 2016-10-01 12:31 | Discharge Summary ---
Discharge Summary Hospital Course Date of Admission Sep 26, 2016 at 22:51 Date of Discharge Sep 29, 2016 at 17:30 Admitting Diagnosis HPI Elsy Kendall is a 81 year old female who was admitted on Sep 26, 2016 at 22: 51 for Fluid Overload Hospital Course [id number] Discharge Discharge Disposition Patient was discharged to Home (01) Discharge Diagnoses: Ellie Ambrocio NP Oct 01, 2016 12:31
== END 2016-09-29 17:30 | disposition home or self-care (01) | DRG 291 ==
LOC: 2E 22:51
PROC: 5A1D60Z (ICD-10-PCS; principal; 2016-09-27)
DX: I13.2 Hypertensive heart and chronic kidney disease with heart failure and with stage 5 chronic kidney disease, or end stage renal disease (principal); N18.6 End stage renal disease; G93.40 Encephalopathy, unspecified; E11.22 Type 2 diabetes mellitus with diabetic chronic kidney disease; I50.9 Heart failure, unspecified; Z79.4 Long term (current) use of insulin; E11.65 Type 2 diabetes mellitus with hyperglycemia; Z99.2 Dependence on renal dialysis; J40 Bronchitis, not specified as acute or chronic
CPT/HCPCS: 36415; 80048; 80053; 82962; 83036; 84443; 85025; 87070; 87081; 87205; 93306; 94640; 94664; 94760; J1815; J2405; J7620; S5561